=== PATIENT | male | born 1985 | race Caucasian/White ===

== ENCOUNTER 2018-09-05 21:28 | Emergency (ER) | payer MEDICAID, SELFPAY ==
[2018-09-05 21:29] VITALS: BP 133/85; PULSE 98; RESP 14; TEMP 36.6; O2SAT 100; BMI 23.1
--- NOTE | 2018-09-05 22:04 | ED.VISSUMM ---
- ER Visit Summary Date of Service: 09/05/18 Chief Complaint: Wound check History of Present Illness: The patient is a 33 M brought in by Noel FRANCE for wound check for clearance for longterm. Patient brought down from [place] from police secondary to a warrant. Patient states he has been dealing with left foot infection since March after stepping on glass. He states he has been at [facility], [facility], most recent [facility]. Patient states he was hospitalized for 1 month. States he is getting IV antibiotics. He states he left AGAINST MEDICAL ADVICE. States diagnosed with osteomyelitis. There is plans of him going to a residential facility. States since leaving he did inject IV drugs last use was yesterday of Tylenol. No fevers. Evaluation of Clinisync, did know there is a nursing note on August 27, 9 days ago where he left AMA from [facility]. He is on daptomycin daily per infectious disease he had positive MRSA and MSSA from wound cultures. He had negative blood cultures as of note on August 27 times 2 days. Also reported he had a history of endocarditis with a negative TERESA. Physical Examination: General: Alert and oriented ?3, no acute distress HEENT: Normocephalic, atraumatic. Moist mucosa membranes Neck: supple, nontender. Cardiovascular: Regular rate and rhythm, no murmurs Respiratory: Normal breath sounds, symmetric, no distress Abdomen: Soft, nontender, nondistended Extremities: Left lower extremity: Foot with swelling, there is scab wounds medial and dorsal foot no drainage. There is erythema in the medial aspect of foot near the ankle there is no streaking. Neuro: no focal neurological deficits. Test Results: WBC 3.8. ESR 49, CRP 19. Blood culture x2 pending. Creatinine 0.88. Emergency Department Course and Treatment: Patient from records there is no confirmed osteomyelitis of the left foot. Some records were obtained from [facility], noted x-ray with periosteal findings with changes proximal third and fourth metatarsal. Was noted he is being continued on daptomycin. I did check labs, white count 3.8. Elevated ESR and CRP. Blood cultures drawn and is pending. Daptomycin was ordered due continued treatment from infectious disease from records. Patient vitals stable. He was released from police custody. Patient requests going back to [facility] for continued treatment. Spoke with transfer line, he is excepted undersurface Dr. Roberson. Treatment Plan: [] Disposition: Transfer [facility] Impression: 1. Osteomyelitis left foot 2. History of IV drug abuse This note was generated with [employer] dictation software. It may contain incorrect words, spelling, and punctuation that were not noted in review of the chart prior to signing ED Disposition - Plan for ED Patient: Disposition: [facility] Chief Complaint: Wound Check Diagnosis: Osteomyelitis of left foot, hx IVDA Referrals: NOT,DEFINED [NON-STAFF] -
--- NOTE | 2018-09-05 22:11 | ED.DCSUM_ITS ---
- ER Visit Summary Date of Service: 09/05/18 Chief Complaint: Wound check History of Present Illness: The patient is a 33 M brought in by Noel FRANCE for wound check for clearance for halfway. Patient brought down from [place] from police secondary to a warrant. Patient states he has been dealing with left foot infection since March after stepping on glass. He states he has been at [facility], [facility], most recent [facility]. Patient states he was hospitalized for 1 month. States he is getting IV antibiotics. He states he left AGAINST MEDICAL ADVICE. States diagnosed with osteomyelitis. There is plans of him going to a group home facility. States since leaving he did inject IV drugs last use was yesterday of Tylenol. No fevers. Evaluation of Clinisync, did know there is a nursing note on August 27, 9 days ago where he left AMA from [facility]. He is on daptomycin daily per infectious disease he had positive MRSA and MSSA from wound cultures. He had negative blood cultures as of note on August 27 times 2 days. Also reported he had a history of endocarditis with a negative TERESA. Physical Examination: General: Alert and oriented ?3, no acute distress HEENT: Normocephalic, atraumatic. Moist mucosa membranes Neck: supple, nontender. Cardiovascular: Regular rate and rhythm, no murmurs Respiratory: Normal breath sounds, symmetric, no distress Abdomen: Soft, nontender, nondistended Extremities: Left lower extremity: Foot with swelling, there is scab wounds medial and dorsal foot no drainage. There is erythema in the medial aspect of foot near the ankle there is no streaking. Neuro: no focal neurological deficits. Test Results: WBC 3.8. ESR 49, CRP 19. Blood culture x2 pending. Creatinine 0.88. Emergency Department Course and Treatment: Patient from records there is no confirmed osteomyelitis of the left foot. Some records were obtained from [facility], noted x-ray with periosteal findings with changes proximal third and fourth metatarsal. Was noted he is being continued on daptomycin. I did check labs, white count 3.8. Elevated ESR and CRP. Blood cultures drawn and is pending. Daptomycin was ordered due continued treatment from infectious disease from records. Patient vitals stable. He was released from police custody. Patient requests going back to [facility] for continued treatment. Spoke with transfer line, he is excepted undersurface Dr. Roberson. Treatment Plan: [] Disposition: Transfer [facility] Impression: 1. Osteomyelitis left foot 2. History of IV drug abuse This note was generated with [employer] dictation software. It may contain incorrect words, spelling, and punctuation that were not noted in review of the chart prior to signing ED Disposition - Plan for ED Patient: Disposition: [facility] Chief Complaint: Wound Check Diagnosis: Osteomyelitis of left foot, hx IVDA Referrals: NOT,DEFINED [NON-STAFF] -
[2018-09-05 22:42] LABS: Hemoglobin 12.4 g/dl (13.0-16.5); Lymphocyte % 38.7 % (19-41); Mean Corp Hgb Conc 32.6 g/gl (32-36); Mean Corpuscular Hgb 27.7 pg (27.0-32.0); Mean Platelet Vol. 9.7 fl (6.2-12.0); Monocyte% 6.3 % (0-10); Neutrophil % 52.4 % (47-70); Platelet Count 206 K/mm3 (150-450); RBC Distribution Width CV 14.2 % (11.6-14.6); RBC Distribution Width SD 43.8 fl (35.1-43.9); Red Blood Count 4.47 M/mm3 (4.6-6.2); White Blood Count 3.8 K/mm3 (4.4-11.0)
[2018-09-05 22:43] LABS: Absolute Lymphocyte Count 1.48 X10^3/ul (0.83-4.51); Basophil# 0.02 X10^3/uL; Basophil% 0.5 % (0-1); Eosinophil# 0.07 X10^3/uL; Eosinophils% 1.8 % (0-5); Lymphocyte # 1.48 X10^3/ul (4.0); Monocyte# 0.24 X10^3/uL
[2018-09-05 22:44] LABS: POSITIVE COUNT NO; POSITIVE DIFFERENTIAL NO; POSITIVE MORPHOLOGY NO
[2018-09-05 22:48] LABS: Erythrocyte Sedimentation Rate 49 mm/hr (0-15)
[2018-09-05 22:53] LABS: International Normalized Ratio 1.1; Prothrombin Time (Protime)PT. 14.1 SECONDS (11.7-14.9)
[2018-09-05 22:54] LABS: Partial Thromboplast Time 33.2 Seconds (24.1-36.2)
[2018-09-05 22:58] LABS: Anion Gap 7 (5-15); BUN 9 mg/dL (7-18); BUN/Creat Ratio 10.2 RATIO (10-20); Calcium,Total 8.5 mg/dL (8.5-10.1); Chloride 105 mmol/L (98-107); Creatinine, Serum 0.88 mg/dL (0.70-1.30); EST Glomerular Filtration Rate 107 mL/min (>60); Est Glom Filt Rate - Afr Amer 129 mL/min (>60); Estimated Creatinine Clearance 136.56 ml/min; Glucose 77 mg/dL (74-106); Potassium 3.8 mmol/L (3.5-5.1); Sodium Level 141 mmol/L (136-145)
--- NOTE | 2018-09-05 23:15 | NURSING ---
ACCEPTED AT GENERAL BY [facility] [id number] REPORT
[2018-09-06 00:49] VITALS: BP 110/74; PULSE 87; RESP 14; O2SAT 97
== END 2018-09-06 00:51 | disposition short-term general hospital (02) ==
PROVIDERS: Emergency Provider Emergency Medicine
DX: M86.8X7 Other osteomyelitis, ankle and foot (principal); Z86.14 Personal history of Methicillin resistant Staphylococcus aureus infection; Z72.0 Tobacco use; F19.10 Other psychoactive substance abuse, uncomplicated
CPT/HCPCS: 80048; 85025; 85610; 85652; 85730; 86140; 87040; 99284; J0878; J7030; A4216; J3490